=== PATIENT | male | born 1995 | race Two or more races ===

== ENCOUNTER → 2022-10-05 | Outpatient (CLI) | payer BC ==
[2022-10-05 09:21] LABS: Basophils # (auto) 0 10 ^3/uL (0-0.2); Basophils % (auto) 0.5 % (0.0-2.0); Eosinophils # (auto) 0 10 ^3/uL (0-0.8); Eosinophils % (auto) 0.5 % (0.0-7.0); Hematocrit 46.6 % (41.0-53.0); Hemoglobin 15.8 g/dL (13.5-17.5); Lymphocytes # (auto) 1.8 10 ^3/uL (0.4-5.4); Lymphocytes % (auto) 28.8 % (10.0-50.0); Mean Corpuscular Hemoglobin 30.4 pg (28.0-32.0); Mean Corpuscular Hgb Conc. 33.9 g/dL (32.0-36.0); Mean Corpuscular Volume 89.7 fL (80.0-100.0); Monocytes # (auto) 0.4 10 ^3/uL (0-1.3); Monocytes % (auto) 5.8 % (0.0-12.0); Neutrophils # (auto) 3.9 10 ^3/uL (1.6-8.6); Neutrophils % (auto) 64.4 % (37.0-80.0); Red Cell Distribution Width 13.4 % (11.8-14.3); White Blood Cell 6.1 10^3/uL (4.4-10.8)
[2022-10-05 09:35] LABS: Urine Bacteria NONE SEEN /hpf (None Seen); Urine Blood Negative /uL (Negative); Urine Mucus FEW (None Seen); Urine Specific Gravity 1.021 (1.001-1.035); Urine WBC 2 /hpf (0 - 3)
[2022-10-05 10:01] LABS: Albumin 4.4 g/dL (3.4-5.0); Calcium 9.3 mg/dL (8.5-10.1); Potassium 4.1 mmol/L (3.5-5.1)
[2022-10-05 10:06] LABS: BUN/Creatinine Ratio 12.6 (10.0-20.0); Bilirubin, Total 1.2 mg/dL (0.2-1.0); Total Protein 7.8 g/dL (6.4-8.2); Uric Acid 5.9 mg/dL (3.5-7.2)
[2022-10-05 10:30] LABS: Hepatitis B Surface Antibody Negative (Negative)
[2022-10-05 11:09] LABS: Hepatitis A Total Antibody Positive (Negative)
[2022-10-05 11:27] LABS: Hepatitis A Ab IgM Negative; Hepatitis B Core IgM Negative; Hepatitis C Antibody Negative (Negative)
== END | disposition home or self-care (01) ==
LOC: LAB 08:55
PROVIDERS: ATTEND Internal Medicine
DX: K21.9 Gastro-esophageal reflux disease without esophagitis (principal); R53.83 Other fatigue
CPT/HCPCS: 36415; 80053; 80061; 81001; 83516; 84402; 84403; 84439; 84443; 84550; 85025; 85652; 86038; 86200; 86431; 86677; 86704; 86705; 86706; 86708; 86709; 86803; 87340

== ENCOUNTER 2023-09-26 18:52 | Emergency (ER) | payer SELFPAY ==
[~2023-09-26] VITALS: Ht 175.3 cm; Wt 86.4 kg
[~2023-09-26 18:52] MED LIST: CIPR0.3S67 OP
[2023-09-26 19:32] VITALS: BP 157/82; PULSE 78; RESP 16; TEMP 97.8
[2023-09-27] MEDS: KETOROLAC TROMETH 60MG/2ML VIAL IM ONE (01:08)
[2023-09-27] MEDS: HYDROcodone-ACET 5/325MG TAB PO ONE (01:09)
[2023-09-27] MEDS ORDERED: HYDR-4902 PO (01:30)
[2023-09-27] MEDS ORDERED: MUPI2CRE17 EX (01:30)
[2023-09-27] MEDS ORDERED: CEPH500C PO (01:30)
[2023-09-27] MEDS: TETANUS-DIPTH-ACEL PERTUSSIS 0.5ML SYR Tdap IM ONE (02:53)
[2023-09-27] MEDS: NEOMYCIN-BACITRACIN-POLYM UNITDOSE PKG TOP OINT TOP ONE (02:54)
[2023-09-27 03:21] VITALS: O2SAT 98
== END 2023-09-27 03:21 | disposition home or self-care (01) ==
LOC: ER 18:52
DX: S72.421A Displaced fracture of lateral condyle of right femur, initial encounter for closed fracture (principal); S82.001A Unspecified fracture of right patella, initial encounter for closed fracture; Z79.2 Long term (current) use of antibiotics; V00.131A Fall from skateboard, initial encounter; Y93.51 Activity, roller skating (inline) and skateboarding; Y92.89 Other specified places as the place of occurrence of the external cause; Y99.8 Other external cause status
CPT/HCPCS: 29505; 73562; 73700; 90471; 90715; 96372; 99285; J1885

== ENCOUNTER 2024-05-21 01:36 | Emergency (ER) | payer MEDICAID, SELFPAY ==
[~2024-05-21] VITALS: Ht 177.8 cm; Wt 92.2 kg
[~2024-05-21 01:36] MED LIST changes: +CEPH500C PO; +HYDR-4902 PO; +MUPI2CRE17 EX
--- NOTE | 2024-05-21 03:04 | ED.PDOC ---
General HPI Comments 29 year old male presents to ER with complaints of right testicular pain x 2 weeks. Patient states he has been experiencing pain/swelling/redness to right testicle x 2 weeks. He rates his current pain a 7/10 to right testicle with radiation towards pelvis. Denies use of medications for current symptoms. Patient presents to ER ambulatory on arrival, with steady gait, in no distress. Denies fever, body aches, chills, fatigue, n/v, abdominal pain, night sweats, exposure to STD, back/flank pain, changes in urination, trauma/injury or any further symptoms/complaints Chief Complaint: Penile Problem Time Seen by MD: 01:50 Primary Care Provider: UNK Reviewed notes: Nurses Notes, Medications, Allergies Allergies: Coded Allergies: NO KNOWN ALLERGIES (Unverified , 05/14/20) Home Meds Active Scripts Mupirocin Calcium (Topical) (MUPIROCIN) 2 % Cre, 1 APPLIC EX TID for 10 Days, #15 GM Prov:NATHALY BHAT Q [employer] 09/27/23 Hydrocodone-Acetaminophen (Hydrocodone Bitartrate/AC 5-325 mg) 1 Tab Tab, 1 TAB PO Q6HPRN PRN, #10 TAB as needed for pain Prov:CAN BHATALDA Q [employer] 09/27/23 Cephalexin Monohydrate (Cephalexin) 500 Mg Cap, 1 CAP PO QID for 10 Days, #40 CAP Prov:BHATNORALDA Q [employer] 09/27/23 Ciprofloxacin HCl (Ophth) (Ciprofloxacin Hydrochlori) 0.3 % Lashay, 2 DROP OP Q4HP PRN, #5 ML Prov:MICA BOJORQUEZ 08/18/23 Information Source: Patient Past Medical History PAST MEDICAL HISTORY: Denies Surgical History: Denies all surgeries Family History Family History: Unknown Social History Smoker: Non-Smoker Alcohol: Denies ETOH Use Drugs: Denies Drug Use Lives In: Home Constitutional: denies: chills, diaphoresis, fatigue, fever, malaise, sweats, weakness, others EENTM: denies: blurred vision, double vision, ear bleeding, ear discharge, ear drainage, ear pain, ear ringing, eye pain, eye redness, hearing loss, mouth pain, mouth swelling, nasal discharge, nose bleeding, nose congestion, nose pain, photophobia, tearing, throat pain, throat swelling, voice changes, others Respiratory: denies: cough, hemoptysis, orthopnea, SOB at rest, shortness of breath, SOB with excertion, stridor, wheezing, others Cardiovascular: denies: chest pain, dizzy spells, diaphoresis, Dyspnea on exertion, edema, irregular heart beat, left arm pain, lightheadedness, palpitations, PND, syncope, others Gastrointestinal: denies: abdomen distended, abdominal pain, blood streaked bowels, constipated, diarrhea, dysphagia, difficulty swallowing, hematemesis, melena, nausea, poor appetite, poor fluid intake, rectal bleeding, rectal pain, vomiting, others Genitourinary: reports: others (As stated in HPI) Neurological: denies: dizziness, fainting, headache, left sided numbness, left sided weakness, numbness, paresthesia, pre-existing deficit, right sided numbness, right sided weakness, seizure, speech problems, tingling, tremors, we akness, others Musculoskeletal: denies: back pain, gout, joint pain, joint swelling, muscle pain, muscle stiffness, neck pain, others Integumetry: reports: others (As stated in HPI) Allergic/Immunocompromised: denies: Difficulty Healing, Frequent Infections, Hives, Itching, others Hematologic/Lymphatic: denies: anemia, blood clots, easy bleeding, easy bruising, swollen glands, others Endocrine: denies: excessive hunger, excessive sweating, excessive thirst, excessive urination, flushing, intolerance to cold, intolerance to heat, unexplained weight gain, unexplained weight loss, others Psychiatric: denies: anxiety, bipolar disorder, depression, hopeless, panic disorder, schizophrenia, sleepless, suicidal, others Physical Exam General Appearance: No Apparent Distress HEENT: Normal ENT Inspection, PERRL/EOMI, Pharynx Normal, TMs Normal Neck: Full Range of Motion, Non-Tender, Normal Respiratory: Chest Non-Tender, Lungs Clear, No Accessory Muscle Use, No Respiratory Distress, Normal Breath Sounds Cardiovascular: No Murmur, No Gallop, Regular Rate/Rhythm Breast Exam: Deferred Gastrointestinal: NOT DONE Genitalia: Other (TTP/mild swelling/erythema noted to right testicle. Positive Prehn sign on right. Positive cremasteric reflex bilaterally. No high-riding testicles noted bilaterally. No further skin changes noted. Remainder genitalia examination-unremarkable) Pelvic: Deferred Rectal: Deferred Extremities: Normal capillary refill, Normal range of motion Neurologic: Alert, No Motor Deficits, Normal Affect, Normal Mood, No Sensory Deficits Cerebellar Function: Normal Reflexes: Normal Skin: Dry, Warm Peripheral Pulses: 2+ Radial (R), 2+ Radial (L), 2+ Brachial (R), 2+ Brachial (L) Lymphatic: No Adenopathy Was a procedure done? Was a procedure done?: No Sedation Sedation?: No Differential Diagnosis Kidney stone (Female): N/A Urinary Problem (Male): Urethritis, Urinary Retention, UTI X-Ray, Labs, Meds, VS Vital Signs Date Time Temp Pulse Resp B/P (MAP) Pulse Ox O2 Delivery O2 Flow Rate FiO2 05/21/24 03:08 96 Room Air 0 05/21/24 02:51 98.7 91 18 155/85 (108) 96 Lab Test 05/21/24 03:11 05/21/24 02:44 Range/Units White Blood Count 8.3 4.4-10.8 10^3/uL Red Blood Count 5.26 4.5-5.90 10^6/uL Hemoglobin 16.7 13.5-17.5 g/dL Hematocrit 48.0 41.0-53.0 % Mean Corpuscular Volume 91.2 80.0-100.0 fL Mean Corpuscular Hemoglobin 31.7 28.0-32.0 pg Mean Corpuscular Hemoglobin Concent 34.7 32.0-36.0 g/dL Red Cell Distribution Width 13.0 11.8-14.3 % Platelet Count 205 140-450 10^3/uL Mean Platelet Volume 9.2 6.9-10.8 fL Neutrophils (%) (Auto) 65.8 37.0-80.0 % Lymphocytes (%) (Auto) 25.2 10.0-50.0 % Monocytes (%) (Auto) 7.5 0.0-12.0 % Eosinophils (%) (Auto) 0.7 0.0-7.0 % Basophils (%) (Auto) 0.8 0.0-2.0 % Neutrophils # (Auto) 5.5 1.6-8.6 10 ^3/uL Lymphocytes # (Auto) 2.1 0.4-5.4 10 ^3/uL Monocytes # (Auto) 0.6 0-1.3 10 ^3/uL Eosinophils # (Auto) 0.1 0-0.8 10 ^3/uL Basophils # (Auto) 0.1 0-0.2 10 ^3/uL Nucleated Red Blood Cells 0.0 % Urine Color Light-yellow Yellow Urine Clarity Clear Clear Urine pH 7.0 5.0-9.0 Urine Specific [place] 1.018 1.001-1.035 Urine Protein Negative Negative Urine Ketones Negative Negative Urine Blood 1+ H Negative /uL Urine Nitrite Negative Negative Urine Bilirubin Negative Negative Urine Urobilinogen Normal Negative mg/dL Urine Leukocyte Esterase Negative Negative /uL Urine RBC 5 0 - 3 /hpf Urine WBC None seen 0 - 3 /hpf Urine Squamous Epithelial Cells None seen <5 /hpf Urine Amorphous Crystals Few None Seen /hpf Urine Bacteria Few H None Seen /hpf Urine Glucose Normal Normal mg/dL Chlamydia trachomatis (LEXI) Pending Neisseria gonorrhoeae (LEXI) Pending PATIENT: ABELARDO BERNABE GACCT: [id number]: [id number] : 1995 LOC: ER ROOM / BED: / AGE / SEX: 29 / M ADM STATUS: REG ER SERVICE [id number] ORDERING PHYSICIAN: NAOMI BACA PROCEDURE(s): TESUS - TESTICULAR ULTRASOUND REASON: right testicular pain ORDER NUMBER(s): [id number], ACCESSION NUMBER(s): [id number] ULTRASOUND OF SCROTUM AND CONTENTS. INDICATION: right testicular pain COMPARISON: None TECHNIQUE: Multiple real-time grayscale sonographic and color and duplex Doppler images of the scrotum and its contents were obtained. FINDINGS: The right testicle measures 5.4 x 5.2 x 5.3 cm. The left testicle measures 3.8 x 2.0 x 2.6 cm. Right testicle is asymmetrically enlarged and demonstrates heterogeneous appearance with hypervascular flow. The right epididymis is not visualized. The left epididymis measures 1.0 cm. Subsequent color and duplex Doppler interrogation of the testes demonstrated symmetric normal vascular flow to both testicles. IMPRESSION: Abnormal asymmetric enlargement of the right testicle which appears edematous and demonstrates hypervascularity. Differential considerations could include posttraumatic appearance to the right testicle versus orchitis. Clinical correlation advised. ATED BY: ROSALIA LIMA MD DICTATED DATE/TIME: 05/21/24538 SIGNED BY: ROSALIA LIMA MD SIGNED DATE/TIME: 05/21/24538 CC: CBC REVIEWED-NORMAL URINALYSIS REVIEWED WITHOUT ANY SIGNIFICANT ABNORMALITIES GONORRHEA/CHLAMYDIA AMPLIFICATION TEST ORDERED ROCEPHIN 1 G IM ORDERED Toradol 60 mg IM ORDERED ADVISED TO DRINK PLENTY OF FLUIDS ADVISED TO FOLLOW UP WITH PCP AND UROLOGY IN 1-2 DAYS PATIENT VERBALIZED UNDERSTANDING AND AGREEABLE WITH CURRENT PLAN OF CARE ADVISED TO RETURN TO ER IMMEDIATELY IF SYMPTOMS WORSEN Time of 1ST Reevaluation: 03:02 Reevaluation 1ST: N/A Patient Education/Counseling: Diagnosis, Treatment, Prognosis, Need For Follow Up Family Education/Counseling: No Family Present Departure 1 Departure Time of Disposition: 05:42 Impression: Primary Impression: Orchitis Disposition: 01 HOME / SELF CARE / HOMELESS Condition: Stable e-Prescriptions Ibuprofen (Ibuprofen) 800 Mg Tab 1 TAB PO TID PRN, #30 TAB 0 Refills Prov: NAOMI BACA 05/21/24 Doxycycline (Monohydrate) (Doxycycline) 100 Mg Cap 100 MG PO BID for 14 Days, #28 CAP 0 Refills Prov: NAOMI BACA 05/21/24 Discharged With: Self Critical Care Note Critical Care Time?: No Stability Stability form required: No Heart Score Heart Score: Heart Score Response (Comments) Value History N/A 0 EKG N/A 0 Age N/A 0 Risk Factors N/A 0 Troponin N/A 0 Total 0 NAOMI BACA May 21, 2024 03:04
[2024-05-21 03:19] LABS: Basophils # (auto) 0.1 10 ^3/uL (0-0.2); Basophils % (auto) 0.8 % (0.0-2.0); Eosinophils # (auto) 0.1 10 ^3/uL (0-0.8); Eosinophils % (auto) 0.7 % (0.0-7.0); Hemoglobin 16.7 g/dL (13.5-17.5); Lymphocytes # (auto) 2.1 10 ^3/uL (0.4-5.4); Lymphocytes % (auto) 25.2 % (10.0-50.0); Mean Corpuscular Hemoglobin 31.7 pg (28.0-32.0); Mean Corpuscular Hgb Conc. 34.7 g/dL (32.0-36.0); Mean Corpuscular Volume 91.2 fL (80.0-100.0); Monocytes # (auto) 0.6 10 ^3/uL (0-1.3); Monocytes % (auto) 7.5 % (0.0-12.0); Neutrophils # (auto) 5.5 10 ^3/uL (1.6-8.6); Neutrophils % (auto) 65.8 % (37.0-80.0); Platelet Count (auto) 205 10^3/uL (140-450); Red Blood Cells 5.26 10^6/uL (4.5-5.90); White Blood Cell 8.3 10^3/uL (4.4-10.8)
[2024-05-21 03:25] LABS: Urine WBC None Seen /hpf (0 - 3)
[2024-05-21 03:40] LABS: Urine Amorphous Crystal FEW /hpf (None Seen); Urine Bacteria FEW /hpf (None Seen); Urine Blood 1+ /uL (Negative); Urine Clarity Clear (Clear); Urine Color Light-Yellow (Yellow); Urine Protein, UAD Negative (Negative); Urine Specific Gravity 1.018 (1.001-1.035); Urine Urobilinogen Normal (Negative)
--- NOTE | 2024-05-21 05:44 | DVH ---
ULTRASOUND OF SCROTUM AND CONTENTS. INDICATION: right testicular pain COMPARISON: None TECHNIQUE: Multiple real-time grayscale sonographic and color and duplex Doppler images of the scrotu m and its contents were obtained. FINDINGS: The right testicle measures 5.4 x 5.2 x 5.3 cm. The left testicle measures 3.8 x 2.0 x 2.6 cm. Right testicle is asymmetrically enlarged and demonstrates heterogeneous appearance with hypervascula r flow. The right epididymis is not visualized. The left epididymis measures 1.0 cm. Subsequent color and duplex Doppler interrogation of the testes demonstrated symmetric normal vascula r flow to both testicles. IMPRESSION: Abnormal asymmetric enlargement of the right testicle which appears edematous and demonstrates hyperv ascularity. Differential considerations could include posttraumatic appearance to the right testicle versus orchitis. Clinical correlation advised.
[2024-05-21] MEDS ORDERED: IBUP-1456 PO (06:00)
[2024-05-21] MEDS ORDERED: DOXY100C79 PO (06:00)
[2024-05-21] MEDS: cefTRIAXone SOD 1,000 MG VL IM ONE (06:39)
[2024-05-21] MEDS: KETOROLAC TROMETH 60MG/2ML VIAL IM ONE (06:41)
[2024-05-21 06:50] VITALS: BP 125/88; PULSE 73; RESP 16; TEMP 98.7; O2SAT 98
[2024-05-23 03:06] LABS: Chlamydia Trachomatis, NAA Negative (Negative); Neisseria gonorrhoeae, NAA Negative (Negative)
== END 2024-05-21 07:12 | disposition home or self-care (01) ==
LOC: ER 01:36
DX: N45.2 Orchitis (principal); R60.9 Edema, unspecified; R10.2 Pelvic and perineal pain; Z11.8 Encounter for screening for other infectious and parasitic diseases
CPT/HCPCS: 36415; 76870; 81001; 85025; 87491; 87591; 96372; 99285; J0696; J1885